=== PATIENT | female | born 1985 | race Caucasian/White ===

== ENCOUNTER → 2018-03-29 13:43 | Outpatient (CLI) | payer OTHER, SELFPAY ==
[2018-04-07 12:04] LABS: HPV APTIMA, High Risk Negative (Negative)
[2018-04-07 12:05] LABS: HPV Reflexed? YES, CHARGE PATIENT
== END ==
PROVIDERS: Visit Provider Obstetrics & Gynecology
DX: Z12.4 Encounter for screening for malignant neoplasm of cervix (principal)
CPT/HCPCS: 87624; 88175; G0145

== ENCOUNTER 2018-08-22 07:22 | Day surgery (SDC) | payer SELFPAY, OTHER ==
--- NOTE | 2018-08-13 15:17 | HP_ITS ---
Intake Vital Signs 08/13/18 Body Mass Index (BMI) 22.3 08/13/18 Height 5 ft 8 in 08/13/18 Weight: 160 lb 08/13/18 Body Mass Index (BMI) 24.3 08/13/18 Blood Pressure 136/80 H 08/13/18 Blood Pressure Location Rt brachial 08/13/18 Blood Pressure Position Sitting 08/13/18 Respiratory Rate 20 H 08/13/18 Pulse Rate 58 L 08/13/18 Pulse Source Monitor 08/13/18 Temperature 98.3 F 08/13/18 Temperature Source Oral 08/13/18 Pulse Ox 98 08/13/18 Oxygen Delivery Method room air Intake Visit Reasons: needs egd & c-scope, seen in er Director Blood Bank Required: No Is patient in pain?: No Allergies No Known Allergies Allergy (Verified 08/13/18 14:56) Medications Cholecalciferol (Vitamin D3) [Vitamin D3] 5,000 unit PO DAILY 08/06/18 [History Confirmed 08/13/18] Mirtazapine [Remeron] 30 mg PO DAILY 08/06/18 [History Confirmed 08/13/18] buspirone 5 mg tablet 10 mg PO DAILY tab 08/13/18 [History Confirmed 08/13/18] fluoxetine 40 mg capsule 40 mg PO DAILY cap 08/13/18 [History Confirmed 08/13/18] PFSH Medical History Rectal bleeding (Acute) Surgical History No history of previous surgery (Acute) Social History Smoking Status: Never smoker alcohol intake: never substance use type: does not use ROS General General: No weight change, appetite, fatigue, colon cancer, breast cancer or weakness HEENT HEENT: No difficulty swallowing, eye injury, eye surgery, swollen glands or hoarseness Endo Endocrine: No thyroid disease, diabetes mellitus, thyroid cancer, Hair loss, heat intolerance or cold intolerance Skin Skin: No rash or changing moles Breast Breast: No left breast lump, right breast lump, nipple discharge, breast pain, abnormal mammogram, abnormal US or breast enlargement Musc Musculoskeletal: No back problems, arthritis, rheumatoid arthritis, gout or joint pain Cardio Cardiovascular: No murmur, pacemaker, heart disease, atrial fibrillation, high blood pressure, heart attack, heart stent, palpitations, shortness of breat with exertion or chest pain Psych Psychiatric: Yes depression and anxiety; no hearing voices Resp Respiratory: No shortness of breath, No sleep apnea, No cough, No COPD, No asthma, No emphysema, No wheezing Gastro Gastrointestinal: No abdominal pain, No nausea or vomiting, No diarrhea, No constipation, No blood in stool, No acid reflux, No hemorrhoids, No ulcers, No gallbladder problem, No black,tarry stools Compa Hematologic: No blood thinners, No blood disorders, No bleeding, No anemia, No blood clots Neuro Neurologic: No system reviewed and no additional complaints, except as docu, No as per HPI, No abnormal walking, No abnormal hearing, No abnormal movements, No abnormal speech, No behavioral changes, No burning sensations, No confusion, No seizure-like activity, No unsteadiness, No dizziness, No localized weakness, No frequent falls, No headache(s), No lack of coordination, No loss of vision, No memory loss, No numbness, No other visual disturbances, No radiating pain, No restless legs, No sensory deficit, No fainting, No tingling, No tremor(s), No weakness, No other Exam Const General: no acute distress, well developed, well hydrated Orientation: oriented to person, oriented to place, oriented to time [facility] Head: normocephalic, atraumatic Ears: external ears normal Mouth: moist mucous membranes Eyes Sclera: sclerae normal Pupils: normal by confrontation Neck Neck: no lymphadenopathy noted Neck mass: No Thyroid: thyroid normal, symmetrical Chest Chest palpation & inspection: normal inspection of the chest Breast Palpation: No nipple discharge Resp Effort & Inspection: normal respiratory effort Auscultation: clear to auscultation bilaterally Percussion: percussion normal Cardio Rate: regular rate Rhythm: regular rhythm Heart Sounds: no murmurs GI Palpation: soft, no hepatosplenomegaly, no masses, nontender Rectal Exam: other Other: Rectal exam deferred. Extrem General: normal to inspection, no clubbing, cyanosis or edema Assessment & Plan Problems 1. Rectal bleeding K62.5 Plan I have discussed the above with the patient. I have offered the patient colonoscopy for evaluation. I have explained the risks/benefits of the procedure and described the procedure. I have discussed the risks with the patient, including but not limited to: infection, bleeding, perforation of the GI tract requiring emergency surgery, inability to complete the procedure, injury to any internal organs, complications of anesthesia, etc. - the patient understands and agrees to proceed. I have answered all the patient's questions to the patient's satisfaction and the patient has no further questions. The patient has been given instructions for the colon cleansing preparation. I do not think that there is any need to do an upper endoscopy on him at this time I think the information that we will gain by doing his colonoscopy will hopefully just guide us into treating him with rectal suppositories. But given the fact that it has been going on for as long as it has I think it is justified that we do the colonoscopy. Coding Level of Care Code Off vis,new,level 3 Diagnoses Rectal bleeding K62.5
[2018-08-22 07:51] VITALS: BP 112/78; PULSE 82; RESP 16; TEMP 37; O2SAT 100; BMI 20.5
[2018-08-22 07:52] LABS: Internal QC Validated? YES +Cl - CLEAR BKGD; Pregnancy, Urine Negative Negative
--- NOTE | 2018-08-22 08:33 | OP.ENDO_ITS ---
08/22/2018 Fidel Ibrahim Re : Colonoscopy procedure for Tyesha Bailey Dear Patrice This procedure was performed on Wednesday, August 22, 2018. My impressions and recommendations are as follows: Impressions : - The procedure was aborted due to a tortuous colon. - Non-bleeding internal hemorrhoids. - The examination was otherwise normal. - No specimens collected. Recommendations : - Discharge patient to home. - Resume previous diet. - Continue present medications. - Perform an air contrast barium enema at the next available appointment. - No repeat colonoscopy. My findings are described in the full procedure note, which is enclosed. If I can be of further assistance, please feel free to contact me at Doctor phone number(s): , Fax: [phone], Work: . Sincerely, MD Luis Tom MD 08/22/2018 8:33:23 AM This report has been signed electronically.
[2018-08-22 08:35] VITALS: BP 101/71; BP 112/78; PULSE 80; RESP 16; TEMP 36.4; O2SAT 100
--- NOTE | 2018-08-22 08:36 | RAD_ITS ---
STUDY: BARIUM ENEMA. REASON FOR EXAM: Female, 32 years old. Rectal bleeding. Incomplete colonoscopy. FLUOROSCOPY TIME (if supplied): (1:10) minutes/seconds. 9 images were obtained. TECHNIQUE: A pencil inspector film was obtained. Following this, contrast was introduced retrograde. The entire colon was opacified. COMPARISON: None. FINDINGS: On the pencil inspector film, the gas pattern is unremarkable. Barium was introduced retrograde through the rectum. Entire colon was opacified. There is redundancy of the sigmoid colon. No intraluminal filling defect is seen. No mass lesion is present. The terminal ileum is unremarkable. RAD/Barium Enema w/Air Contrast IMPRESSION: Unremarkable barium enema. Electronically Signed: Elia Calles, at 13:36 EDT , Service support ,
[2018-08-22 08:40] VITALS: BP 109/77; BP 112/78; PULSE 70; RESP 16; O2SAT 100
[2018-08-22 08:45] VITALS: BP 107/76; BP 112/78; PULSE 70; RESP 16; O2SAT 100
[2018-08-22 08:50] VITALS: BP 105/71; BP 112/78; PULSE 70; RESP 16; TEMP 36.5; O2SAT 100
[2018-08-22 09:19] VITALS: BP 112/78
== END 2018-08-22 09:20 | disposition home or self-care (01) ==
LOC: EN 07:24 → AC 07:28
PROVIDERS: Anesthesiology; Family Provider Family Medicine; PCP Family Medicine; Referring Provider Family Medicine; Visit Provider Surgery
PROC: 0DJD8ZZ Inspection of Lower Intestinal Tract, Via Natural or Artificial Opening Endoscopic (ICD-10-PCS; CPT 45378; principal; 2018-08-22 08:25)
DX: K64.8 Other hemorrhoids (principal); K62.5 Hemorrhage of anus and rectum; Z53.8 Procedure and treatment not carried out for other reasons; Z79.899 Other long term (current) drug therapy
CPT/HCPCS: 45330; 74280; 81025; 93005; J7120; J1610

== ENCOUNTER → 2019-06-05 18:00 | Outpatient (CLI) | payer OTHER, SELFPAY ==
[2019-06-11 12:32] LABS: HPV Reflexed? NOT INDICATED
== END ==
PROVIDERS: PCP Family Medicine; Referring Provider Obstetrics & Gynecology; Visit Provider Obstetrics & Gynecology
DX: Z12.4 Encounter for screening for malignant neoplasm of cervix (principal)
CPT/HCPCS: 88175; G0145

== ENCOUNTER → 2021-01-15 11:32 | Outpatient (CLI) | payer SELFPAY, OTHER ==
--- NOTE | 2021-01-15 11:36 | US_ITS ---
STUDY: THYROID ULTRASOUND REASON FOR EXAM: Female, 35 years old. DYSMENORRHEA -- abnormal labs TECHNIQUE: Ultrasound evaluation of the thyroid was performed with real-time and static lopez-scale imaging. COMPARISON: None. FINDINGS: RIGHT LOBE: The right lobe of the thyroid gland measures 5.1 x 1.5 x 1.2 cm. There is a homogeneous echotexture. There is a very small hypoechoic nodule in the midpole measuring 5 x 3 x 3 mm demonstrating irregular margins and perinodular vascularity LEFT LOBE: The left lobe of the thyroid gland measures 4.9 x 1.2 x 1.1 cm. There is a homogeneous echotexture. There are no demonstrated solid, cystic or complex lesions. ISTHMUS: The isthmus measures 2 mm . The regional lymph nodes are normal. US/Thyroid IMPRESSION: Tiny hypoechoic nodule measuring 5 x 3 x 3 mm in the right lobe of thyroid most likely benign. Would recommend 3-6 month follow-up for further evaluation. Electronically Signed: Ernesto De La Paz MD at 17:19 EDT , Service support ,
== END ==
PROVIDERS: PCP Family Medicine
DX: N94.6 Dysmenorrhea, unspecified (principal)
CPT/HCPCS: 76536

== ENCOUNTER → 2021-01-15 12:08 | Outpatient (CLI) | payer OTHER, SELFPAY ==
[2021-01-15 14:10] LABS: T3 Total - Triiodothyronine 1.24 ng/mL (0.6-1.81)
[2021-01-15 14:20] LABS: Free T3 2.9 pg/mL (2.18-3.98); T4 Free Direct 0.85 ng/dL (0.76-1.46); Thyroid Stim Hormone (TSH) 1.71 uIU/mL (0.358-3.74)
[2021-01-19 20:46] LABS: T3 Reverse 14.1 ng/dL (9.2-24.1); Thyroglobulin Antibody < 1.0 IU/mL (0.0-0.9); Thyroid Peroxidase AB 11 IU/mL (0-34)
== END ==
PROVIDERS: PCP Family Medicine
DX: N94.6 Dysmenorrhea, unspecified (principal)
CPT/HCPCS: 36415; 84439; 84443; 84480; 84481; 84482; 86376; 86800

== ENCOUNTER → 2023-04-04 | Outpatient (CLI) | payer SELFPAY, OTHER ==
--- NOTE | 2023-04-04 09:38 | BI_ITS ---
MAMMOGRAPHY - BILATERAL SCREENING REASON FOR EXAM: Female, 37 years old. Routine annual screening examination. PERTINENT HISTORY: Grandmother with breast cancer. Aunts with breast cancer. TECHNIQUE: Digital bilateral breast shen (3D mammographic acquisition) in the CC and MLO projections. 2-D mediolateral oblique (MLO) and craniocaudad (CC) views of both breasts were obtained. CAD: Full Field Digital Mammography with Computer Added Detection was performed. COMPARISON: None. Baseline examination. FINDINGS: Breast Composition: The breasts are extremely dense, which lowers the sensitivity of mammography. There are no dominant masses or suspicious calcifications. No other significant abnormalities are identified. BI/SCRN MAMM (CAD)W/SHEN BILAT IMPRESSION: Negative screening mammogram. Yearly followup mammogram recommended. (A) ASSESSMENT CATEGORY: BIRADS Category 1: Negative. A letter regarding these results will be sent to the patient by the facility within 30 days. Approximately 10% of breast cancers are not detected by mammography. A normal mammogram should not delay biopsy of a clinically suspicious abnormality. [id number] Electronically Signed: Elia Calles MD at 10:25 EST ,
== END | disposition home or self-care (01) ==
LOC: OPBI 09:22
PROVIDERS: PCP Family Medicine; Referring Provider Advanced Practice Midwife; Visit Provider Advanced Practice Midwife
DX: Z12.31 Encounter for screening mammogram for malignant neoplasm of breast (principal); Z80.3 Family history of malignant neoplasm of breast
CPT/HCPCS: 77063; 77067